=== PATIENT | female | born 1955 | race Two or more races ===

== ENCOUNTER 2018-10-02 18:17 | Emergency (ER) | payer MEDICAID ==
[~2018-10-02] VITALS: Ht 162.6 cm; Wt 72.6 kg
[2018-10-02 18:59] LABS: APPEARANCE,URINE CLEAR; BILIRUBIN, URINE NEGATIVE (NEGATIVE); COLOR,URINE PALE YELLOW; GLUCOSE, URINE (UA) NEGATIVE (NEGATIVE); KETONES,URINE NEGATIVE (NEGATIVE); LEUKOCYTE ESTERASE ,URINE 2+ (NEGATIVE); NITRITE,URINE NEGATIVE (NEGATIVE); PH,URINE 7 (4.5-8.0); PROTEIN,URINE NEGATIVE (NEGATIVE); UROBILINOGEN,URINE NORMAL MG/DL (0.0-1.0)
[2018-10-02 19:10] VITALS: BP 134/65
[2018-10-02 19:22] LABS: BASOPHILS % (AUTO) 1.9 % (0.0-2.0); EOSINOPHILS % (AUTO) 3.9 % (0.0-3.0); HEMATOCRIT 40.2 % (37.0-47.0); HEMOGLOBIN 13.5 G/DL (12.0-16.0); LYMPHOCYTES % (AUTO) 23.5 % (20.0-45.0); MEAN CORPUSCULAR VOLUME 89 FL (80-99); MONOCYTES % (AUTO) 6.9 % (1.0-10.0); NEUTROPHILS % (AUTO) 63.8 % (45.0-75.0); PLATELET COUNT 139 K/UL (150-450); RED BLOOD COUNT 4.54 M/UL (4.20-5.40); RED CELL DISTRIBUTION WIDTH 12.1 % (11.6-14.8); WHITE BLOOD COUNT 6.4 K/UL (4.8-10.8)
--- NOTE | 2018-10-02 19:28 | Emergency Room Report ---
History of Present Illness General Chief Complaint: Upper Respiratory Illness Source: Patient Present Illness HPI Patient is a 63-year-old female sent in by nursing facility for increased cough and congestion. Patient reports having increased difficulty breathing. Patient had prior history of psychiatric disease. Patient denies any increased leg swelling. Patient had recently had a PPD placed which was reportedly positive. Patient was sent in for further evaluation and treatment. Patient denies any severe shortness of breath or chest discomfort at this time. Allergies: Coded Allergies: HALOPERIDOL (Verified Allergy, Unknown, 10/02/18) ZIPRASIDONE (Verified Allergy, Unknown, 10/02/18) Patient History Past Medical History: see triage record Reviewed Nursing Documentation: PMH: Agreed; PSxH: Agreed Nursing Documentation-PMH Past Medical History: No History, Except For Hx Hypertension: Yes Hx Dialysis: Yes History Of Psychiatric Problem: Yes - schizophrenia Review of Systems All Other Systems: negative except mentioned in HPI Physical Exam Vital Signs Date Time Temp Pulse Resp B/P (MAP) Pulse Ox O2 Delivery O2 Flow Rate FiO2 10/02/18 18:03 97.3 73 16 134/65 98 Room Air General Appearance: well appearing, no apparent distress, alert, GCS 15 Head: normocephalic, atraumatic ENT: hearing grossly normal, normal voice Neck: full range of motion, supple Respiratory: no respiratory distress, speaking full sentences Gastrointestinal: normal inspection, non tender, soft Musculoskeletal: no calf tenderness Neurologic: normal inspection, alert, oriented x3, cook vegetable III-XII nml as tested, normal gait Psychiatric: mood/affect normal Skin: no rash Medical Decision Making Diagnostic Impression: Primary Impression: Upper respiratory infection ER Course Patient presented for cough. Differential diagnosis included but was not limited to bronchitis, pneumonia, pulmonary embolism, pericarditis, asthma, foreign body. Because of complexity of patient's case laboratory testing and imaging studies were ordered.The patient's laboratory testing was unremarkable. Patient potassium is likely laboratory error. Patient noted to have the unremarkable chest x-ray. The right upper extremity PPD site was noted to have blistering without evident induration and this is likely due to traumatic placement of PPD..Patient is to be stable for discharge. Labs Test 10/02/18 18:25 White Blood Count 6.4 K/UL (4.8-10.8) Red Blood Count 4.54 M/UL (4.20-5.40) Hemoglobin 13.5 G/DL (12.0-16.0) Hematocrit 40.2 % (37.0-47.0) Mean Corpuscular Volume 89 FL (80-99) Mean Corpuscular Hemoglobin 29.8 PG (27.0-31.0) Mean Corpuscular Hemoglobin Concent 33.7 G/DL (32.0-36.0) Red Cell Distribution Width 12.1 % (11.6-14.8) Platelet Count 139 K/UL (150-450) Mean Platelet Volume 8.2 FL (6.5-10.1) Neutrophils (%) (Auto) 63.8 % (45.0-75.0) Lymphocytes (%) (Auto) 23.5 % (20.0-45.0) Monocytes (%) (Auto) 6.9 % (1.0-10.0) Eosinophils (%) (Auto) 3.9 % (0.0-3.0) Basophils (%) (Auto) 1.9 % (0.0-2.0) Prothrombin Time 10.3 SEC (9.30-11.50) Prothromb Time International Ratio 1.0 (0.9-1.1) Activated Partial Thromboplast Time 23 SEC (23-33) Urine Color Pale yellow Urine Appearance Clear Urine pH 7 (4.5-8.0) Urine Specific [place] 1.005 (1.005-1.035) Urine Protein Negative (NEGATIVE) Urine Glucose (UA) Negative (NEGATIVE) Urine Ketones Negative (NEGATIVE) Urine Blood Negative (NEGATIVE) Urine Nitrite Negative (NEGATIVE) Urine Bilirubin Negative (NEGATIVE) Urine Urobilinogen Normal MG/DL (0.0-1.0) Urine Leukocyte Esterase 2+ (NEGATIVE) Urine RBC 0-2 /HPF (0 - 2) Urine WBC 2-4 /HPF (0 - 2) Urine Squamous Epithelial Cells Few /LPF (NONE/OCC) Urine Bacteria Few /HPF (NONE) Sodium Level 139 MMOL/L (136-145) Potassium Level 5.3 MMOL/L (3.5-5.1) Chloride Level 102 MMOL/L (98-107) Carbon Dioxide Level 30 MMOL/L (21-32) Anion Gap 7 mmol/L (5-15) Blood Urea Nitrogen 28 mg/dL (7-18) Creatinine 1.2 MG/DL (0.55-1.30) Estimat Glomerular Filtration Rate 45.5 mL/min (>60) Glucose Level 125 MG/DL (74-106) Lactic Acid Level 0.80 mmol/L (0.4-2.0) Calcium Level 9.3 MG/DL (8.5-10.1) Phosphorus Level 4.7 MG/DL (2.5-4.9) Magnesium Level 1.8 MG/DL (1.8-2.4) Total Bilirubin 0.2 MG/DL (0.2-1.0) Aspartate Amino Transf (AST/SGOT) 25 U/L (15-37) Alanine Aminotransferase (ALT/SGPT) 19 U/L (12-78) Alkaline Phosphatase 81 U/L (46-116) Total Creatine Kinase 143 U/L (26-308) Creatine Kinase MB 1.3 NG/ML (0.0-3.6) Creatine Kinase MB Relative Index 0.9 Troponin I 0.000 ng/mL (0.000-0.056) Pro-B-Type Natriuretic Peptide 282 pg/mL (0-125) Total Protein 8.4 G/DL (6.4-8.2) Albumin 3.6 G/DL (3.4-5.0) Globulin 4.8 g/dL Albumin/Globulin Ratio 0.8 (1.0-2.7) Last Vital Signs Date Time Temp Pulse Resp B/P (MAP) Pulse Ox O2 Delivery O2 Flow Rate FiO2 10/02/18 19:13 96 16 Room Air 10/02/18 19:10 97.3 134/65 98 Status: improved Disposition: HOME, SELF-CARE Condition: Stable Chaitanya Ramey MD Oct 02, 2018 19:28
[2018-10-02 19:29] LABS: ANION GAP 7 mmol/L (5-15); BLOOD UREA NITROGEN 28 mg/dL (7-18); CALCIUM 9.3 MG/DL (8.5-10.1); CARBON DIOXIDE 30 MMOL/L (21-32); CHLORIDE 102 MMOL/L (98-107); CREATININE 1.2 MG/DL (0.55-1.30); POTASSIUM 5.3 MMOL/L (3.5-5.1); SODIUM 139 MMOL/L (136-145)
--- NOTE | 2018-10-02 19:34 | Diagnostic Imaging Report ---
EXAM: XR Chest, 1 View CLINICAL HISTORY: SOB TECHNIQUE: Frontal view of the chest. COMPARISON: No relevant prior studies available. FINDINGS: Lungs: Unremarkable. No consolidation. Pleural space: Unremarkable. No pneumothorax. Heart: Mild cardiomegaly. Mediastinum: Unremarkable. Bones/joints: Unremarkable. IMPRESSION: Normal chest x-ray.
[2018-10-02 19:44] LABS: ALANINE AMINOTRANSFERASE 19 U/L (12-78); ALBUMIN 3.6 G/DL (3.4-5.0); ALBUMIN/GLOBULIN RATIO 0.8 (1.0-2.7); ALKALINE PHOSPHATASE 81 U/L (46-116); ASPARTATE AMINO TRANSFERASE 25 U/L (15-37); BILIRUBIN,TOTAL 0.2 MG/DL (0.2-1.0); CKMB 1.3 NG/ML (0.0-3.6); CREATINE KINASE 143 U/L (26-308); PHOSPHORUS 4.7 MG/DL (2.5-4.9)
[2018-10-02 21:24] VITALS: BP 134/65
== END 2018-10-02 21:30 ==
LOC: EDBD 18:17 → EMR 18:53 → CANBEDREQ 20:13 → EMR 21:30
DX: J06.9 Acute upper respiratory infection, unspecified (principal); I10 Essential (primary) hypertension; F20.9 Schizophrenia, unspecified
CPT/HCPCS: 36415; 71045; 80053; 81003; 82550; 82553; 83605; 83735; 83880; 84100; 84484; 85025; 85610; 85730; 86710; 87040; 93005; 99284

== ENCOUNTER 2019-01-05 14:20 | Inpatient (IN) | payer MEDICAID ==
[~2019-01-05] VITALS: Ht 154.9 cm; Wt 88.0 kg
[~2019-01-05 14:20] MED LIST: DEPAKOTE250 MG PO; JANUVIA25 MG ORAL; LISINOPRIL2.5 MG ORAL; SERTRALINE HCL25 MG ORAL; SIMVASTATIN20 MG ORAL; STARLIX60 MG ORAL; ZYPREXA10 MG ORAL
--- NOTE | 2019-01-05 14:31 | NUR ---
ED Nurse Note: PT BROUGHT IN BY AMBULANCE FROM [facility]UE TO FALL YESTERDAY. DENIES HEAD TRAUMA OR LOC. PT HAS C/O L LEG AND L FOOT PAIN
[2019-01-05 15:11] LABS: BASOPHILS % (AUTO) 1.1 % (0.0-2.0); HEMATOCRIT 40.8 % (37.0-47.0); HEMOGLOBIN 13.5 G/DL (12.0-16.0); LYMPHOCYTES % (AUTO) 22.7 % (20.0-45.0); MEAN CORPUSCULAR VOLUME 92 FL (80-99); MONOCYTES % (AUTO) 7.4 % (1.0-10.0); NEUTROPHILS % (AUTO) 65.8 % (45.0-75.0); PLATELET COUNT 237 K/UL (150-450); RED BLOOD COUNT 4.44 M/UL (4.20-5.40); RED CELL DISTRIBUTION WIDTH 12.8 % (11.6-14.8); WHITE BLOOD COUNT 6.5 K/UL (4.8-10.8)
[2019-01-05 15:17] LABS: APPEARANCE,URINE CLEAR; BILIRUBIN, URINE NEGATIVE (NEGATIVE); COLOR,URINE PALE YELLOW; GLUCOSE, URINE (UA) 4+ (NEGATIVE); KETONES,URINE 1+ (NEGATIVE); LEUKOCYTE ESTERASE ,URINE NEGATIVE (NEGATIVE); NITRITE,URINE NEGATIVE (NEGATIVE); PH,URINE 7 (4.5-8.0); PROTEIN,URINE NEGATIVE (NEGATIVE); UROBILINOGEN,URINE NORMAL MG/DL (0.0-1.0)
[2019-01-05 15:21] LABS: ANION GAP 7 mmol/L (5-15); BLOOD UREA NITROGEN 27 mg/dL (7-18); CARBON DIOXIDE 29 MMOL/L (21-32); CHLORIDE 98 MMOL/L (98-107); CREATININE 1.3 MG/DL (0.55-1.30); POTASSIUM 5.4 MMOL/L (3.5-5.1); SODIUM 134 MMOL/L (136-145)
[2019-01-05 15:26] LABS: ALANINE AMINOTRANSFERASE 17 U/L (12-78); ALBUMIN 3.3 G/DL (3.4-5.0); ALBUMIN/GLOBULIN RATIO 0.9 (1.0-2.7); ALKALINE PHOSPHATASE 109 U/L (46-116); ASPARTATE AMINO TRANSFERASE 18 U/L (15-37); BILIRUBIN,TOTAL 0.2 MG/DL (0.2-1.0)
--- NOTE | 2019-01-05 15:35 | Diagnostic Imaging Report ---
Indications: Head trauma, status post fall yesterday, pain Technique: Spiral acquisitions obtained through the brain. Angled axial and coronal 5 x 5 mm slices were reconstructed. Total dose length product 1690.02 mGycm. CTDI vol(s) 70.38,11.77 mGy. Dose reduction achieved using automated exposure control Comparison: None. Findings: There is mild age-related enlargement of the ventricles and extra axial CSF spaces. No acute intracranial hemorrhage or edema, mass effect, nor midline shift demonstrated. The calvarium is intact. Visualized orbits and sinuses are unremarkable. The mastoids are clear. Impression: Mild age-related volume loss Negative for acute intracranial bleed or mass effect The CT scanner at [facility] is accredited by the [employer] and the scans are performed using protocols designed to limit radiation exposure to as low as reasonably achievable to attain images of sufficient resolution adequate for diagnostic evaluation.
--- NOTE | 2019-01-05 15:42 | Diagnostic Imaging Report ---
Indication: Pain, trauma, status post fall yesterday Technique: Spiral acquisitions obtained through the cervical spine. No IV contrast utilized. Multiplanar reconstructions were generated. Total dose length product 1690.02 mGycm. CTDIvol(s) 70.38,11.77 mGy. Dose reduction achieved using automated exposure control. Comparison: none Findings: There is slight reversal of the normal cervical lordosis, otherwise normal bony alignment. No acute fractures. No dislocations. The vertebral body heights are preserved. At C5-6, there is minimal degenerative disc narrowing and a small focus of vacuum formation. There is mild narrowing of the right neural foramen, predominantly due to uncinate hypertrophy. At C6-7, there is minimal degenerative disc narrowing. There is minimal narrowing of the bilateral neural foramina. At the remaining levels, no significant disc bulge or protrusion, spinal stenosis, or neural foraminal stenosis. The upper aerodigestive tract is grossly unremarkable. The included extraspinal soft tissues are unremarkable. Impression: No acute bony trauma Minimal degenerative changes, as described The CT scanner at [facility] is accredited by the [employer] and the scans are performed using protocols designed to limit radiation exposure to as low as reasonably achievable to attain images of sufficient resolution adequate for diagnostic evaluation.
[2019-01-05] MEDS ORDERED: Insulin Human Regular 100units/ml 3ml SUBQ ONE (16:15)
--- NOTE | 2019-01-05 16:42 | NUR ---
ED Nurse Note: Placed an IV line on patient's left AC. 20 gauge
[2019-01-05 16:56] VITALS: BP 118/84
[2019-01-05 18:07] LABS: ALANINE AMINOTRANSFERASE 17 U/L (12-78); ALBUMIN/GLOBULIN RATIO 0.9 (1.0-2.7); ALKALINE PHOSPHATASE 107 U/L (46-116); ANION GAP 9 mmol/L (5-15); ASPARTATE AMINO TRANSFERASE 19 U/L (15-37); BILIRUBIN,TOTAL 0.2 MG/DL (0.2-1.0); BLOOD UREA NITROGEN 29 mg/dL (7-18); CALCIUM 8.5 MG/DL (8.5-10.1); CARBON DIOXIDE 28 MMOL/L (21-32); CHLORIDE 100 MMOL/L (98-107); CREATININE 1.4 MG/DL (0.55-1.30); POTASSIUM 5.3 MMOL/L (3.5-5.1); SODIUM 137 MMOL/L (136-145)
[2019-01-05] MEDS ORDERED: NATEGLINIDE120 MG PO (19:11)
[2019-01-05] MEDS ORDERED: JANUVIA50 MG ORAL (19:11)
[2019-01-05] MEDS ORDERED: SERTRALINE HCL50 MG ORAL (19:11)
[2019-01-05] MEDS ORDERED: DIVALPROEX SOD500 MG PO (19:11)
[2019-01-05] MEDS ORDERED: VITAMIN D-32000 UNI1 PO (19:11)
--- NOTE | 2019-01-05 19:30 | NUR ---
ED Nurse Note: Rechecked patients blood sugar was 288, Dr. gasca notified
[2019-01-05 19:41] VITALS: BP 123/82
--- NOTE | 2019-01-05 19:45 | NUR ---
C Addendum: 01/05/19 at 1945 by BPARENTELA ED Nurse Note: attempted to give Report, Erasmo, Charge nurse informed staff, to call back in 10 minutes
--- NOTE | 2019-01-05 19:59 | Emergency Room Report ---
History of Present Illness General Chief Complaint: Multiple Trauma/Fall Source: EMS Present Illness HPI 63-year-old female presents to the emergency department brought by ambulance from [facility] for multiple falls and having altered mental status according to facility. Patient presents with psychiatric history, high blood pressure and diabetes. Patient denies neck or back pain but does admit to falling. Patient states that she does not recall hitting her head or having loss of consciousness. Patient does report some pain in her right second toe stating that she has a corn on the top that requires wound care. Patient denies nausea, vomiting, abdominal pain, fevers, or chills. Patient denies severity localized bony tenderness/pain other than chronic pain in the right foot. pt. reprots needing surgery which is in the process of being scheduled. pt. states she has taken her medications today. Allergies: Coded Allergies: AMPICILLIN (Unverified Allergy, Unknown, 01/05/19) HALOPERIDOL (Verified Allergy, Unknown, 10/02/18) ZIPRASIDONE (Verified Allergy, Unknown, 10/02/18) Patient History Past Medical History: see triage record Past Surgical History: none Pertinent Family History: none Last Menstrual Period: 12/08/18 Now: No Reviewed Nursing Documentation: PMH: Agreed; PSxH: Agreed Nursing Documentation-PMH Past Medical History: No History, Except For Hx Hypertension: Yes Hx Diabetes: Yes Hx Dialysis: Yes History Of Psychiatric Problem: Yes - BIPOLAR, SCHIZO, DEPRESSION Hx Neurological Problems: Yes - SEIZURES Review of Systems All Other Systems: negative except mentioned in HPI Physical Exam Vital Signs Date Time Temp Pulse Resp B/P (MAP) Pulse Ox O2 Delivery O2 Flow Rate FiO2 01/05/19 14:10 98.1 94 18 139/87 95 Room Air Sp02 EP Interpretation: reviewed, normal General Appearance: no apparent distress, alert, GCS 15, non-toxic, obese Head: normocephalic, atraumatic Eyes: bilateral eye normal inspection, bilateral eye PERRL ENT: hearing grossly normal, normal voice Neck: full range of motion Respiratory: lungs clear, normal breath sounds, speaking full sentences Cardiovascular #1: regular rate, rhythm, edema - non-pitting edema bilaterally Gastrointestinal: normal bowel sounds, non tender, soft Musculoskeletal: normal range of motion, other - deformity to digits of the right foot., tender - TTP to the second and thrid digit of the right foot, dorsal aspects- corns noted. Neurologic: alert, oriented x3, responsive, motor strength/tone normal, sensory intact, speech normal, grossly normal Psychiatric: other - very labile - between tearfulness and giddiness. Skin: normal color, no rash, warm/dry, well hydrated, other - corns on the right LE Medical Decision Making PA Attestation Dr. Ramey is my supervising Physician whom patient management has been discussed with. Diagnostic Impression: Primary Impression: Altered mental status Qualified Codes: R41.82 - Altered mental status, unspecified Additional Impression: Hyperglycemia ER Course 63-year-old female presents to the emergency department brought by ambulance from [facility] for multiple falls and having altered mental status according to facility. Patient presents with psychiatric history, high blood pressure and diabetes. Patient denies neck or back pain but does admit to falling. Patient states that she does not recall hitting her head or having loss of consciousness. Patient does report some pain in her right second toe stating that she has a corn on the top that requires wound care. Patient denies nausea, vomiting, abdominal pain, fevers, or chills. Patient denies severity localized bony tenderness/pain other than chronic pain in the right foot. pt. reprots needing surgery which is in the process of being scheduled. pt. states she has taken her medications today. Ddx considered but are not limited to acute head injury, sepsis, encephalopathy , UTI, hyper/hypoglycemia, overdose/intoxication, or arrhythmia just to name a few Vital signs: are WNL, pt. is afebrile H&PE are most consistent with mental status change with unknown baseline status post unwitnessed fall ORDERS: CBC-unremarkable CMP-elevated blood glucose level of 493, potassium of 5.8 and BUN of 27, no anion gap UA: Presence of 4+ glucose and 1+ ketones consistent with hyperglycemia nonketotic ED INTERVENTIONS: 1 L normal saline 2 -10 units subcutaneous normal insulin DISPOSITION: at this time pt. will be admitted to Dr. MORFIN for HYPERGLYCEMIA. Dr. MORFIN agreed to admit the pt. and to continue pt. care management. Labs Test 01/05/19 14:50 01/05/19 17:05 01/05/19 19:35 White Blood Count 6.5 K/UL (4.8-10.8) Red Blood Count 4.44 M/UL (4.20-5.40) Hemoglobin 13.5 G/DL (12.0-16.0) Hematocrit 40.8 % (37.0-47.0) Mean Corpuscular Volume 92 FL (80-99) Mean Corpuscular Hemoglobin 30.5 PG (27.0-31.0) Mean Corpuscular Hemoglobin Concent 33.2 G/DL (32.0-36.0) Red Cell Distribution Width 12.8 % (11.6-14.8) Platelet Count 237 K/UL (150-450) Mean Platelet Volume 7.5 FL (6.5-10.1) Neutrophils (%) (Auto) 65.8 % (45.0-75.0) Lymphocytes (%) (Auto) 22.7 % (20.0-45.0) Monocytes (%) (Auto) 7.4 % (1.0-10.0) Eosinophils (%) (Auto) 3.0 % (0.0-3.0) Basophils (%) (Auto) 1.1 % (0.0-2.0) Urine Color Pale yellow Urine Appearance Clear Urine pH 7 (4.5-8.0) Urine Specific [place] 1.010 (1.005-1.035) Urine Protein Negative (NEGATIVE) Urine Glucose (UA) 4+ (NEGATIVE) Urine Ketones 1+ (NEGATIVE) Urine Blood Negative (NEGATIVE) Urine Nitrite Negative (NEGATIVE) Urine Bilirubin Negative (NEGATIVE) Urine Urobilinogen Normal MG/DL (0.0-1.0) Urine Leukocyte Esterase Negative (NEGATIVE) Sodium Level 137 MMOL/L (136-145) Potassium Level 5.3 MMOL/L (3.5-5.1) Chloride Level 100 MMOL/L (98-107) Carbon Dioxide Level 28 MMOL/L (21-32) Anion Gap 9 mmol/L (5-15) Blood Urea Nitrogen 29 mg/dL (7-18) Creatinine 1.4 MG/DL (0.55-1.30) Estimat Glomerular Filtration Rate 38.1 mL/min (>60) Glucose Level 479 MG/DL (74-106) Calcium Level 8.5 MG/DL (8.5-10.1) Total Bilirubin 0.2 MG/DL (0.2-1.0) Aspartate Amino Transf (AST/SGOT) 19 U/L (15-37) Alanine Aminotransferase (ALT/SGPT) 17 U/L (12-78) Alkaline Phosphatase 107 U/L (46-116) Total Protein 6.4 G/DL (6.4-8.2) Albumin 3.0 G/DL (3.4-5.0) Globulin 3.4 g/dL Albumin/Globulin Ratio 0.9 (1.0-2.7) CT/MRI/US Diagnostic Results CT/MRI/US Diagnostic Results #1: Imaging Test Ordered: CT HEAD NO CONTRAST Impression No acute abnormalities--Per official radiology report- Please see report for specific details. CT/MRI/US Diagnostic Results #2: Imaging Test Ordered: CT C-SPINE Impression No acute FRACTURES/ abnormalities--Per official radiology report- Please see report for specific details. Last Vital Signs Date Time Temp Pulse Resp B/P (MAP) Pulse Ox O2 Delivery O2 Flow Rate FiO2 01/05/19 19:41 97.5 86 18 123/82 95 Room Air Disposition: ADMITTED INPATIENT Condition: Serious Referrals: Yonny Morfin DO (PCP) Simran Dumas Jan 05, 2019 19:59
[2019-01-05 20:00] VITALS: BP 152/63
--- NOTE | 2019-01-05 20:00 | NUR ---
ED Nurse Note: Patient transferred to Med surg, gave report to CORRIE Zimmerman
--- NOTE | 2019-01-05 20:22 | NUR ---
NURSE NOTES: Pt is admitted from ER in stable condition. Report received from ZAFAR Garces RN.Pt is from [facility]. Pt is awake, verbal, ambulatory. Room air. Pt is here after a fall, head and cervical CT was done in the ER. Pt reports no pain now. Pt is is on fall precaution and seizure precaution. Pt has history of diabetes. Pt oriented to the room . Belongings checked. Bed low in position,side rails up and call light within reach. Pt will be monitored. Dr. Mcneil is called for admission orders. Pt's POLST indicates full code status.
[2019-01-05] MEDS ORDERED: LORazepam Inj 2mg/ml 1ml IV PRN (21:00)
[2019-01-05] MEDS ORDERED: Miralax 17gm pkt ORAL PRN (21:00)
[2019-01-05] MEDS ORDERED: Morphine Sulfate 2mg/ml Inj(IV/IM USE ONLY) IVP PRN (21:00)
[2019-01-05] MEDS: Zolpidem 5mg tab ORAL PRN (22:53)
[2019-01-05] MEDS: Heparin 5000 units/ml inj SUBQ SCH (22:55)
[2019-01-05] MEDS: NovoLOG Insulin Flexpen SUBQ SCH (22:55)
[2019-01-05] MEDS: Mylanta II UD 30ml ORAL PRN (23:04)
[2019-01-06] VITALS: BP 134/68
--- NOTE | 2019-01-06 01:46 | NUR ---
NURSE NOTES: Pt is moved to room 402-1 , all belongings transferred as well. No acute distress noted. Vitals stable.
[2019-01-06 04:00] VITALS: BP 132/70
[2019-01-06] MEDS: NovoLOG Insulin Flexpen SUBQ SCH ×4 (05:45→20:32)
--- NOTE | 2019-01-06 07:05 | NUR ---
HAND-OFF: Report given to CORRIE Lara.Informed that pt is fall risk.
[2019-01-06 07:49] LABS: HEMOGLOBIN 11.3 G/DL (12.0-16.0); LYMPHOCYTES % (AUTO) 36.3 % (20.0-45.0); MEAN CORPUSCULAR VOLUME 92 FL (80-99); MONOCYTES % (AUTO) 8.9 % (1.0-10.0); NEUTROPHILS % (AUTO) 49.9 % (45.0-75.0); PLATELET COUNT 216 K/UL (150-450); RED BLOOD COUNT 3.69 M/UL (4.20-5.40); RED CELL DISTRIBUTION WIDTH 12.6 % (11.6-14.8)
[2019-01-06 08:00] VITALS: BP 133/65
[2019-01-06 08:17] LABS: ALANINE AMINOTRANSFERASE 19 U/L (12-78); ALKALINE PHOSPHATASE 69 U/L (46-116); ANION GAP 7 mmol/L (5-15); ASPARTATE AMINO TRANSFERASE 11 U/L (15-37); BILIRUBIN,TOTAL 0.1 MG/DL (0.2-1.0); BLOOD UREA NITROGEN 26 mg/dL (7-18); CALCIUM 8.7 MG/DL (8.5-10.1); CARBON DIOXIDE 28 MMOL/L (21-32); CHLORIDE 106 MMOL/L (98-107); CHOLESTEROL 131 MG/DL (< 200); CREATININE 1.1 MG/DL (0.55-1.30); HDL CHOLESTEROL 38 MG/DL (40-60); POTASSIUM 4.4 MMOL/L (3.5-5.1); SODIUM 141 MMOL/L (136-145); TRIGLYCERIDES 199 MG/DL (30-150)
--- NOTE | 2019-01-06 08:25 | NUR ---
NURSE NOTES: Patient is alert and oriented. Patient assisted to restroom and helped back into bed. Side rails are padded and are up X2. Bed is locked, in lowest position, and call light is within reach. Will continue to monitor.
[2019-01-06] MEDS: OLANZapine 10mg tab ORAL SCH ×2 (08:45→17:43)
[2019-01-06] MEDS: Depakote 500mg tab ORAL SCH (08:45)
[2019-01-06] MEDS: Sertraline 50mg tab ORAL SCH (08:45)
[2019-01-06] MEDS: sitaGLIPtin 50mg tab ORAL SCH (08:45)
[2019-01-06] MEDS: Heparin 5000 units/ml inj SUBQ SCH ×2 (08:46→20:30)
[2019-01-06] MEDS ORDERED: Levemir Flexpen SUBQ SCH (09:00)
--- NOTE | 2019-01-06 10:43 | NUR ---
DAY CAMP COUNSELORMECHANICAL DESIGN TECHNICIAN 63 Y/O FEMALE KANIKA FROM [facility] CC:MULTIPLE TRAUMA/ FALL SI:ALTERED MENTAL STATUS VS: BP 139/87, P 94, T 98.2, RR 18, SpO2 95 on RA K 5.3, BUN 29, CR 1.4, Glucose 479, Albumin 3.0, Urine Ketones 1+ Head CT Impression: Mild age-related volume loss Negative for acute intracranial bleed or mass effect Cervical Spine CT Findings: There is slight reversal of the normal cervical lordosis, otherwise normal bony alignment. No acute fractures. No dislocations. The vertebral body heights are preserved. IS:Morphine Ambien NovoLog Novolin R NS IV x 2L MED/SURGE STATUS DC PLAN RETURN TO [facility]
[2019-01-06 12:00] VITALS: BP 126/67
--- NOTE | 2019-01-06 13:19 | General Progress Note ---
Progress Note Progress Note [id number] full consult dictated Claudia Norman MD Jan 06, 2019 13:19
[2019-01-06 16:00] VITALS: BP 156/90
--- NOTE | 2019-01-06 16:01 | Consultation ---
DATE OF CONSULTATION: 01/06/2019 ENDOCRINOLOGY CONSULTATION: CONSULTING PHYSICIAN: James Quintero M.D. REFERRING PHYSICIAN: Yonny Mcneil D.O. REASON FOR CONSULTATION: Diabetes management. HISTORY OF PRESENT ILLNESS: The patient is a 63-year-old female, who lives in a board and care facility and presented to the hospital with altered mental status. The patient has a psychiatric history, also high blood pressure and diabetes. Glucose is elevated. Endocrinology was consulted in order to assist in the management of diabetes. ALLERGIES TO MEDICATIONS: 1. Ampicillin. 2. Haldol. 3. Ziprasidone. PAST MEDICAL HISTORY: 1. Diabetes. 2. Psychiatric illness. 3. Hypertension. PAST SURGICAL HISTORY: None. FAMILY HISTORY: Noncontributory. SOCIAL HISTORY: Lives in a board and care. No smoking, alcohol, or drug use. REVIEW OF SYSTEMS: As per HPI. LABORATORY DATA: Glucose 137, sodium 135, chloride 100, bicarbonate 28, BUN 29, creatinine 1.4, glucose 479. Lactic acid 2.7. WBC of 6, hemoglobin 12, hematocrit 40, platelets of 337. PHYSICAL EXAMINATION: VITAL SIGNS: Blood pressure 133/70, pulse rate 76, respiratory rate of 18, temp of 98.1. HEENT: Pupils are equal and reactive to light and accommodation. Sclerae anicteric. NECK: No JVD. HEART: Regular. LUNGS: Clear. ABDOMEN: Positive bowel sounds. EXTREMITIES: Trace edema. DIAGNOSES: 1. Diabetes, out of control. 2. Altered mental status. 3. Multiple falls. PLAN: 1. Add Levemir 8 units daily. 2. Start Starlix 120 mg before each meal. 3. Continue Januvia 50 mg daily. 4. Avoid metformin due to elevated lactic acid. 5. NovoLog sliding scale before meals and at bedtime. 6. Further adjustment according to blood glucose values. Thank you, Dr. Mcneil, for the courtesy of this consultation. James Quintero M.D. DR: BELKIS JOB#: [id number] CC: BELA
--- NOTE | 2019-01-06 17:00 | Consultation ---
DATE OF CONSULTATION: 01/06/2019 NEPHROLOGY CONSULTATION CONSULTING PHYSICIAN: Claudia Norman M.D. REFERRING PHYSICIAN: Yonny Mcneil D.O. REASON FOR CONSULTATION: Acute renal failure. HISTORY OF PRESENT ILLNESS: The patient is a 63-year-old female with past medical history significant for history of morbid obesity, hypertension, diabetes, and history of schizophrenia. Apparently the patient was at [facility] and [facility] facility. She was at [employer] [place] and she forgot to lock her walker so the walker moved and she fell on her knee and scraped her left elbow. The patient was brought into emergency room. Per long term records, the patient had altered mental status but currently she is alert and awake. She denies having any chest pain, shortness of breath. She denies having any syncopal or presyncopal episode in the past. PAST MEDICAL HISTORY: 1. Hypertension. 2. Diabetes. 3. Morbid obesity. 4. History of schizophrenia. 5. History of seizure. MEDICATIONS: Medication list was reviewed. ALLERGIES: She has allergies to penicillin, haloperidol, and ziprasidone. SOCIAL HISTORY: She lives at a [facility]. FAMILY HISTORY: Noncontributory. REVIEW OF SYSTEMS: GENERAL: She complained of generalized weakness. No fever. No chills. No night sweats. HEAD AND NECK: Denies any dysphagia, odynophagia, blurry vision, headache, or neck stiffness. PULMONARY: No shortness of breath. No cough or sputum. CARDIOVASCULAR: Denies any chest pain or palpitations. GASTROINTESTINAL: Denies any nausea, vomiting, diarrhea, hematemesis, or hematochezia. GENITOURINARY: Denies any dysuria, frequency, or hematuria. MUSCULOSKELETAL: Complained of bilateral lower extremity toe pain and left knee pain. PHYSICAL EXAMINATION: VITAL SIGNS: The patient has an temperature of 97, blood pressure of 133/65, pulse rate of 76. HEAD AND NECK: No JVP. No LAD. No thyromegaly. Extraocular movement intact. Pupils are reactive to light and accommodation. LUNGS: Clear to auscultation. CARDIAC: Regular rate and rhythm. S1 and S2. No murmur. No rub. ABDOMEN: Soft, nontender, and nondistended. EXTREMITIES: No edema. No clubbing. No cyanosis. LABORATORY AND DIAGNOSTIC DATA: Sodium 141, potassium 4.4, chloride 106, bicarb 28, BUN of 26, creatinine of 1.1, glucose of 204. Creatinine jumped from 1.4. Sugar is 200. A1c of 11.5. AST of 11, ALT of 19, total protein of 6, albumin of 3. UA revealed specific gravity of 1.010, glucose 4+, ketones 1+, no wbc, no rbc, no protein. ASSESSMENT: 1. Acute renal failure. The etiology of acute renal failure is ATN due to unstable hemodynamics . 2. Uncontrolled diabetes. 3. Rule out diabetic nephropathy. 4. Hypertension, well controlled at this time. PLAN: Plan for the patient to obtain UA. Check the random urine protein and creatinine ratio to calculate the proteinuria. Check the urine sodium and creatinine to calculate fractional excretion of sodium. Check microalbumin level. Check the urine for eosinophil, IV hydration. Avoid any NSAID or nephrotoxic. Replace the electrolytes as needed. At the end, I would like to thank, Dr. Yonny Mcneil, for allowing me to participate in the care of this patient. Claudia Norman M.D. DR: Jj JOB#: [id number] CC:
--- NOTE | 2019-01-06 18:16 | History and Physical Report ---
DATE OF ADMISSION: 01/05/2019 CONSULTANTS: 1. Amador Jeroinmo M.D. 2. Donnie Fuentes M.D. 3. James Quintero M.D. 4. Mehdi Obrien 5. Pavel Hutchins M.D. 6. Henry Lobo D.P.M. 7. Claudia Norman M.D. CHIEF COMPLAINT: Diabetes, uncontrolled, fall, seizure, and psych history. BRIEF HISTORY: This is a 63-year-old female from [facility] presents to [facility] with the above-mentioned diagnoses, admitted to medical floor for further treatment. Currently, calm in bed, slightly confused. No complaint. REVIEW OF SYSTEMS: No chest pain. No shortness of breath. No nausea, vomiting, or diarrhea. PAST MEDICAL HISTORY: Includes diabetes, hypertension, psych history, bipolar, frequent falls, and seizure. PAST SURGICAL HISTORY: BTL. MEDICATIONS: Include Starlix, Depakote, Zyprexa, Zoloft, Januvia, Levemir, Tylenol, morphine, Zofran, Ambien, Mylanta, and NovoLog. ALLERGIES: Ampicillin, Haldol, and ziprasidone. SOCIAL HISTORY: Positive smoke. Positive alcohol. No intravenous drug abuse. FAMILY HISTORY: Noncontributory. PHYSICAL EXAMINATION: GENERAL: Calm in bed, oriented x2, in no acute distress. VITAL SIGNS: Temperature 97 degrees, pulse 80, respirations 18, and blood pressure 133/65. CARDIOVASCULAR: No murmurs. LUNGS: Distant and clear. ABDOMEN: Bowel sounds positive. Nontender. Nondistended. EXTREMITIES: No cyanosis. No clubbing. No edema. NEUROLOGIC: Slightly weak in bed. Otherwise, moves all extremities. LABORATORY AND DIAGNOSTIC DATA: Labs, at this time, show H and H is 11 and 34, otherwise CBC is normal. BMP show BUN 26 and glucose 204, initially 479. Albumin 3.0. Urinalysis show 1+ ketone and 4+ glucose. ASSESSMENT: 1. Diabetes, uncontrolled. 2. Frequent falls. 3. Seizure. 4. Anemia. 5. Podiatry issue. 6. Malnutrition. 7. Hypertension. 8. Psych history. 9. Bipolar. 10. BTL. PLAN: 1. Blood sugar and blood pressure control. 2. Psychiatric treatment. 3. Dietary followup. 4. PT and dietary evaluation. 5. CBC and BMP in the morning. Yonny Mcneil D.O. DR: AN JOB#: [id number] CC:
--- NOTE | 2019-01-06 19:07 | NUR ---
HAND-OFF: Report given to CORRIE Nava.
--- NOTE | 2019-01-06 19:12 | NUR ---
NURSE NOTES: Patient reports pain on left arm and left knee. Dr. Fuentes notified. New order received.
[2019-01-06 20:00] VITALS: BP 136/66
[2019-01-06] MEDS: Zolpidem 5mg tab ORAL PRN (20:28)
--- NOTE | 2019-01-06 21:01 | Cardiology Progress Note ---
Assessment/Plan Assessment/Plan The patient is seen and examined, full cardiology consult note is dictated. Objective Last 24 Hour Vital Signs Date Time Temp Pulse Resp B/P (MAP) Pulse Ox O2 Delivery O2 Flow Rate FiO2 01/06/19 16:00 97.2 74 18 156/90 (112) 99 01/06/19 12:00 98.3 79 18 126/67 (86) 100 01/06/19 08:00 Room Air 01/06/19 08:00 97.7 82 18 133/65 (87) 95 01/06/19 04:00 98.1 76 18 132/70 (90) 96 01/06/19 00:00 97.8 78 18 134/68 (90) 96 Intake and Output 01/05/19 01/06/19 18:59 06:59 Intake Total 500 ml Balance 500 ml Intake Oral 500 ml # Voids 1 Laboratory Tests Test 01/06/19 05:33 01/06/19 15:21 White Blood Count 5.0 K/UL (4.8-10.8) Red Blood Count 3.69 M/UL (4.20-5.40) L Hemoglobin 11.3 G/DL (12.0-16.0) L Hematocrit 34.0 % (37.0-47.0) L Mean Corpuscular Volume 92 FL (80-99) Mean Corpuscular Hemoglobin 30.7 PG (27.0-31.0) Mean Corpuscular Hemoglobin Concent 33.3 G/DL (32.0-36.0) Red Cell Distribution Width 12.6 % (11.6-14.8) Platelet Count 216 K/UL (150-450) Mean Platelet Volume 6.8 FL (6.5-10.1) Neutrophils (%) (Auto) 49.9 % (45.0-75.0) Lymphocytes (%) (Auto) 36.3 % (20.0-45.0) Monocytes (%) (Auto) 8.9 % (1.0-10.0) Eosinophils (%) (Auto) 4.0 % (0.0-3.0) H Basophils (%) (Auto) 1.0 % (0.0-2.0) Sodium Level 141 MMOL/L (136-145) Potassium Level 4.4 MMOL/L (3.5-5.1) Chloride Level 106 MMOL/L (98-107) Carbon Dioxide Level 28 MMOL/L (21-32) Anion Gap 7 mmol/L (5-15) Blood Urea Nitrogen 26 mg/dL (7-18) H Creatinine 1.1 MG/DL (0.55-1.30) Estimat Glomerular Filtration Rate 50.3 mL/min (>60) Glucose Level 204 MG/DL (74-106) #H Hemoglobin A1c 11.5 % (4.3-6.0) H Calcium Level 8.7 MG/DL (8.5-10.1) Total Bilirubin 0.1 MG/DL (0.2-1.0) L Aspartate Amino Transf (AST/SGOT) 11 U/L (15-37) L Alanine Aminotransferase (ALT/SGPT) 19 U/L (12-78) Alkaline Phosphatase 69 U/L (46-116) Total Protein 6.0 G/DL (6.4-8.2) L Albumin 3.0 G/DL (3.4-5.0) L Globulin 3.0 g/dL Albumin/Globulin Ratio 1.0 (1.0-2.7) Triglycerides Level 199 MG/DL (30-150) H Cholesterol Level 131 MG/DL (< 200) LDL Cholesterol 62 mg/dL (<100) HDL Cholesterol 38 MG/DL (40-60) L Cholesterol/HDL Ratio 3.4 (3.3-4.4) Urine Eosinophils None seen (NONE SEEN) Urine Random Creatinine Pending Urine Random Microalbumin Pending Urine Random Total Protein 2 MG/DL (< 11.9) Urine Random Sodium 49 mmol/L (20-110) Urine Creatinine 9.2 MG/DL (30.0-125.0) L Urine Microalbumin/Creatinine Ratio Pending Microbiology Date/Time Source Procedure Growth Status 01/05/19 15:05 Rectum Received Pavel Hutchins MD Jan 06, 2019 21:01
--- NOTE | 2019-01-06 22:42 | NUR ---
NURSE NOTES: Patient awake in bed, alert and oriented x4, not in acute respiratory distress. Instructed the use of call light. Call light and needs in reach. Bed in lowest position, lock engaged and alarm on. Will continue to monitor.
[2019-01-07] VITALS: BP 132/81
[2019-01-07 04:00] VITALS: BP 143/91
[2019-01-07] MEDS: NovoLOG Insulin Flexpen SUBQ SCH ×4 (05:51→20:10)
--- NOTE | 2019-01-07 06:35 | General Progress Note ---
Assessment/Plan Problem List: (1) Altered mental status ICD Codes: R41.82 - Altered mental status, unspecified SNOMED: 387819404 Qualifiers: Qualified Codes: R41.82 - Altered mental status, unspecified (2) Hyperglycemia ICD Codes: R73.9 - Hyperglycemia, unspecified SNOMED: 10396243 Assessment/Plan increased Levemir to 14 units daily continue Starlix 120 mg ac tid continue Januvia 50 mg daily continue NISS ac / hs Subjective ROS Limited/Unobtainable: Yes Allergies: Coded Allergies: AMPICILLIN (Unverified Allergy, Unknown, 01/05/19) HALOPERIDOL (Verified Allergy, Unknown, 10/02/18) ZIPRASIDONE (Verified Allergy, Unknown, 10/02/18) Subjective events noted Item Value Date Time Bedside Blood Glucose 210 mg/dl H 01/07/19 0551 Bedside Blood Glucose 233 mg/dl H 01/06/19 2100 Bedside Blood Glucose 126 mg/dl H 01/06/19 1731 Bedside Blood Glucose 203 mg/dl H 01/06/19 1234 Bedside Blood Glucose 208 mg/dl H 01/06/19 0847 Bedside Blood Glucose 208 mg/dl H 01/06/19 0630 Objective Last 24 Hour Vital Signs Date Time Temp Pulse Resp B/P (MAP) Pulse Ox O2 Delivery O2 Flow Rate FiO2 01/07/19 04:00 97.7 74 18 143/91 (108) 99 01/07/19 00:00 97.5 64 20 132/81 (98) 94 01/06/19 21:00 Room Air 01/06/19 20:00 97.6 71 18 136/66 (89) 95 01/06/19 16:00 97.2 74 18 156/90 (112) 99 01/06/19 12:00 98.3 79 18 126/67 (86) 100 01/06/19 08:00 Room Air 01/06/19 08:00 97.7 82 18 133/65 (87) 95 Intake and Output 01/06/19 01/07/19 19:00 07:00 Intake Total 800 ml Balance 800 ml Intake Oral 800 ml # Voids 7 4 # Bowel Movements 1 Laboratory Tests 01/06/19 15:21: Urine Eosinophils None seen, Urine Random Creatinine [Pending], Urine Random Microalbumin [Pending], Urine Random Total Protein 2, Urine Random Sodium 49, Urine Creatinine 9.2L, Urine Microalbumin/Creatinine Ratio [Pending] Height (Feet): 5 Height (Inches): 1.00 Weight (Pounds): 194 General Appearance: no apparent distress Neck: normal alignment Cardiovascular: normal rate Respiratory/Chest: lungs clear Abdomen: normal bowel sounds Objective Current Medications Medications (Trade) Dose Ordered Sig/Soham Route PRN Reason Start Time Stop Time Status Last Admin Dose Admin Acetaminophen (Tylenol) 650 mg Q4H PRN ORAL Mild Pain/Temp > 100.5 01/06/19 17:00 02/04/19 20:59 01/06/19 20:29 Al Hydroxide/Mg Hydroxide (Mylanta II) 30 ml Q6H PRN ORAL dyspepsia 01/05/19 21:00 02/04/19 20:59 01/05/19 23:04 Dextrose (Dextrose 50%) 25 ml Q30M PRN IV Hypoglycemia 01/06/19 06:45 02/05/19 06:44 Dextrose (Dextrose 50%) 50 ml Q30M PRN IV Hypoglycemia 01/06/19 06:45 02/05/19 06:44 Divalproex Sodium (Depakote) 500 mg DAILY ORAL 01/06/19 09:00 02/05/19 08:59 01/06/19 08:45 Docusate Sodium (Colace) 100 mg THREE TIMES A DAY ORAL 01/07/19 09:00 02/06/19 08:59 Heparin Sodium (Porcine) (Heparin 5000 units/ml) 5,000 units EVERY 12 HOURS SUBQ 01/05/19 21:00 02/04/19 20:59 01/06/19 20:30 Insulin Aspart (NovoLOG) BEFORE MEALS AND HS SUBQ 01/05/19 21:00 02/04/19 20:59 01/07/19 05:51 Insulin Detemir (Levemir) 8 units DAILY SUBQ 01/06/19 09:00 02/05/19 08:59 01/06/19 08:47 Lorazepam (Ativan 2mg/ml 1ml) 0.5 mg Q4H PRN IV For Anxiety 01/05/19 21:00 01/12/19 20:59 Morphine Sulfate (Morphine Sulfate) 1 mg Q4H PRN IVP For Pain 01/05/19 21:00 01/12/19 20:59 01/05/19 22:53 Nateglinide (Starlix) 120 mg TIAC ORAL 01/06/19 11:30 02/05/19 11:29 01/07/19 05:45 Olanzapine (ZyPREXA) 10 mg TWICE A DAY ORAL 01/06/19 09:00 02/05/19 08:59 01/06/19 17:43 Ondansetron HCl (Zofran) 4 mg Q6H PRN IVP Nausea & Vomiting 01/05/19 21:00 02/04/19 20:59 Polyethylene Glycol (Miralax) 17 gm HSPRN PRN ORAL Constipation 01/05/19 21:00 02/04/19 20:59 Sertraline HCl (Zoloft) 50 mg DAILY ORAL 01/06/19 09:00 02/05/19 08:59 01/06/19 08:45 Sitagliptin Phosphate (Januvia) 50 mg DAILY ORAL 01/06/19 09:00 02/05/19 08:59 01/06/19 08:45 Zolpidem Tartrate (Ambien) 5 mg HSPRN PRN ORAL Insomnia 01/05/19 21:00 01/12/19 20:59 01/06/19 20:28 James Quintero MD Jan 07, 2019 06:35
[2019-01-07 06:41] LABS: BASOPHILS % (AUTO) 1.2 % (0.0-2.0); EOSINOPHILS % (AUTO) 4.6 % (0.0-3.0); HEMATOCRIT 34.4 % (37.0-47.0); HEMOGLOBIN 11.6 G/DL (12.0-16.0); MEAN CORPUSCULAR VOLUME 91 FL (80-99); MONOCYTES % (AUTO) 6.8 % (1.0-10.0); NEUTROPHILS % (AUTO) 54.5 % (45.0-75.0); PLATELET COUNT 198 K/UL (150-450); RED BLOOD COUNT 3.79 M/UL (4.20-5.40); RED CELL DISTRIBUTION WIDTH 12.1 % (11.6-14.8); WHITE BLOOD COUNT 5.5 K/UL (4.8-10.8)
[2019-01-07 06:52] LABS: ANION GAP 10 mmol/L (5-15); BLOOD UREA NITROGEN 29 mg/dL (7-18); CALCIUM 9.1 MG/DL (8.5-10.1); CARBON DIOXIDE 26 MMOL/L (21-32); CHLORIDE 103 MMOL/L (98-107); CREATININE 1.2 MG/DL (0.55-1.30); POTASSIUM 4.8 MMOL/L (3.5-5.1); SODIUM 139 MMOL/L (136-145)
--- NOTE | 2019-01-07 07:19 | NUR ---
HAND-OFF: Report given to CORRIE Lara.
[2019-01-07 08:00] VITALS: BP 141/62
--- NOTE | 2019-01-07 08:18 | NUR ---
NURSE NOTES: Patient is alert and oriented X4. Patient is resting in bed. No reports of discomfort. Will continue to monitor.
[2019-01-07] MEDS: Docusate 100mg cap ORAL SCH ×3 (08:56→17:34)
[2019-01-07] MEDS: OLANZapine 10mg tab ORAL SCH ×2 (08:56→17:35)
[2019-01-07] MEDS: sitaGLIPtin 50mg tab ORAL SCH (08:56)
[2019-01-07] MEDS: Sertraline 50mg tab ORAL SCH (08:56)
[2019-01-07] MEDS: Depakote 500mg tab ORAL SCH (08:57)
[2019-01-07] MEDS: Heparin 5000 units/ml inj SUBQ SCH ×2 (08:58→20:08)
[2019-01-07] MEDS ORDERED: Levemir Flexpen SUBQ SCH (09:00)
--- NOTE | 2019-01-07 10:31 | NUR ---
RADIOLOGY DEPT ELBOW AND KNEE X-RAYS COMPLETED.-P.DYE
--- NOTE | 2019-01-07 10:42 | Diagnostic Imaging Report ---
Indications:Elbow pain Technique: 2 views of the left elbow Comparison: None Findings: No acute fractures. No dislocations. The joint spaces are preserved. No evidence of effusion Impression: Negative
--- NOTE | 2019-01-07 10:43 | Diagnostic Imaging Report ---
Indication: Left knee pain Technique: 2 views of the left knee Comparison: None Findings: There is mild degenerative narrowing of the medial joint compartment. There may be some narrowing of the patellofemoral compartment. Lateral compartment is preserved. There are medial, lateral, and patellofemoral osteophytes noted. No effusion. No acute fractures. No dislocations. Impression: Degenerative changes, as described No acute bony trauma
--- NOTE | 2019-01-07 11:47 | NUR ---
*-* INSURANCE *-* ALL CLINICALS, REVIEWS AND INTERQUAL HAVE BEEN FAXED TO: GREG PLEASE FAX THE REVIEW/CLINICAL NCM: TAQUERIA P- [phone] X [phone] F- [phone]
[2019-01-07 12:00] VITALS: BP 134/81
[2019-01-07] MEDS ORDERED: NOVOLOG100 UNITS1 SUBQ (13:02)
[2019-01-07] MEDS ORDERED: LEVEMIR FL100 UNIT/1 SUBQ (13:02)
--- NOTE | 2019-01-07 13:02 | Pulmonology Progress Note ---
Assessment/Plan Problems: (1) Uncontrolled diabetes mellitus (2) Altered mental status Assessment/Plan BS better now on Levemir 14 Subjective ROS Limited/Unobtainable: No Constitutional: Reports: no symptoms HEENT: Repors: no symptoms Respiratory: Reports: no symptoms Allergies: Coded Allergies: AMPICILLIN (Unverified Allergy, Unknown, 01/05/19) HALOPERIDOL (Verified Allergy, Unknown, 10/02/18) ZIPRASIDONE (Verified Allergy, Unknown, 10/02/18) Objective Last 24 Hour Vital Signs Date Time Temp Pulse Resp B/P (MAP) Pulse Ox O2 Delivery O2 Flow Rate FiO2 01/07/19 12:00 97.6 18 18 134/81 (98) 97 75 01/07/19 08:15 Room Air 01/07/19 08:00 97.5 80 18 141/62 (88) 97 01/07/19 04:00 97.7 74 18 143/91 (108) 99 01/07/19 00:00 97.5 64 20 132/81 (98) 94 01/06/19 21:00 Room Air 01/06/19 20:00 97.6 71 18 136/66 (89) 95 01/06/19 16:00 97.2 74 18 156/90 (112) 99 Intake and Output 01/06/19 01/07/19 19:00 07:00 Intake Total 800 ml Balance 800 ml Intake Oral 800 ml # Voids 7 4 # Bowel Movements 1 General Appearance: WD/WN HEENT: normocephalic, atraumatic Respiratory/Chest: chest wall non-tender, normal breath sounds Breasts: no masses Cardiovascular: regular rhythm Abdomen: soft, non tender, non distended Extremities: no clubbing Microbiology Date/Time Source Procedure Growth Status 01/05/19 16:45 Blood Blood Culture - Preliminary NO GROWTH AFTER 24 HOURS Resulted 01/05/19 16:30 Blood Blood Culture - Preliminary NO GROWTH AFTER 24 HOURS Resulted 01/05/19 15:05 Rectum Received Laboratory Tests 01/06/19 15:21: Urine Eosinophils None seen, Urine Random Creatinine [Pending], Urine Random Microalbumin [Pending], Urine Random Total Protein 2, Urine Random Sodium 49, Urine Creatinine 9.2L, Urine Microalbumin/Creatinine Ratio [Pending] 01/07/19 05:16: White Blood Count 5.5, Red Blood Count 3.79L, Hemoglobin 11.6L, Hematocrit 34.4L , Mean Corpuscular Volume 91, Mean Corpuscular Hemoglobin 30.6, Mean Corpuscular Hemoglobin Concent 33.7, Red Cell Distribution Width 12.1, Platelet Count 198, Mean Platelet Volume 6.0L, Neutrophils (%) (Auto) 54.5, Lymphocytes ( %) (Auto) 33.0, Monocytes (%) (Auto) 6.8, Eosinophils (%) (Auto) 4.6H, Basophils (%) (Auto) 1.2, Sodium Level 139, Potassium Level 4.8, Chloride Level 103, Carbon Dioxide Level 26, Anion Gap 10, Blood Urea Nitrogen 29H, Creatinine 1.2, Estimat Glomerular Filtration Rate 45.5, Glucose Level 209H, Calcium Level 9.1 Current Medications Medications (Trade) Dose Ordered Sig/Soham Route PRN Reason Start Time Stop Time Status Last Admin Dose Admin Acetaminophen (Tylenol) 650 mg Q4H PRN ORAL Mild Pain/Temp > 100.5 01/06/19 17:00 02/04/19 20:59 01/06/19 20:29 Al Hydroxide/Mg Hydroxide (Mylanta II) 30 ml Q6H PRN ORAL dyspepsia 01/05/19 21:00 02/04/19 20:59 01/05/19 23:04 Dextrose (Dextrose 50%) 25 ml Q30M PRN IV Hypoglycemia 01/06/19 06:45 02/05/19 06:44 Dextrose (Dextrose 50%) 50 ml Q30M PRN IV Hypoglycemia 01/06/19 06:45 02/05/19 06:44 Divalproex Sodium (Depakote) 500 mg DAILY ORAL 01/06/19 09:00 02/05/19 08:59 01/07/19 08:57 Docusate Sodium (Colace) 100 mg THREE TIMES A DAY ORAL 01/07/19 09:00 02/06/19 08:59 01/07/19 08:56 Heparin Sodium (Porcine) (Heparin 5000 units/ml) 5,000 units EVERY 12 HOURS SUBQ 01/05/19 21:00 02/04/19 20:59 01/07/19 08:58 Insulin Aspart (NovoLOG) BEFORE MEALS AND HS SUBQ 01/05/19 21:00 02/04/19 20:59 01/07/19 05:51 Insulin Detemir (Levemir) 14 units DAILY SUBQ 01/07/19 09:00 02/05/19 08:59 01/07/19 09:14 Lorazepam (Ativan 2mg/ml 1ml) 0.5 mg Q4H PRN IV For Anxiety 01/05/19 21:00 01/12/19 20:59 Morphine Sulfate (Morphine Sulfate) 1 mg Q4H PRN IVP For Pain 01/05/19 21:00 01/12/19 20:59 01/05/19 22:53 Nateglinide (Starlix) 120 mg TIAC ORAL 01/06/19 11:30 02/05/19 11:29 01/07/19 05:45 Olanzapine (ZyPREXA) 10 mg TWICE A DAY ORAL 01/06/19 09:00 02/05/19 08:59 01/07/19 08:56 Ondansetron HCl (Zofran) 4 mg Q6H PRN IVP Nausea & Vomiting 01/05/19 21:00 02/04/19 20:59 Polyethylene Glycol (Miralax) 17 gm HSPRN PRN ORAL Constipation 01/05/19 21:00 02/04/19 20:59 Sertraline HCl (Zoloft) 50 mg DAILY ORAL 01/06/19 09:00 02/05/19 08:59 01/07/19 08:56 Sitagliptin Phosphate (Januvia) 50 mg DAILY ORAL 01/06/19 09:00 02/05/19 08:59 01/07/19 08:56 Zolpidem Tartrate (Ambien) 5 mg HSPRN PRN ORAL Insomnia 01/05/19 21:00 01/12/19 20:59 01/06/19 20:28 Donnie Fuentes MD Jan 07, 2019 13:02
--- NOTE | 2019-01-07 13:19 | General Progress Note ---
Assessment/Plan Problem List: (1) Anemia ICD Codes: D64.9 - Anemia, unspecified SNOMED: 523985472 (2) Malnutrition ICD Codes: E46 - Unspecified protein-calorie malnutrition SNOMED: 88079329 (3) Altered mental status ICD Codes: R41.82 - Altered mental status, unspecified SNOMED: 140702646 Qualifiers: Qualified Codes: R41.82 - Altered mental status, unspecified (4) Hyperglycemia ICD Codes: R73.9 - Hyperglycemia, unspecified SNOMED: 53584111 (5) Uncontrolled diabetes mellitus ICD Codes: E11.65 - Type 2 diabetes mellitus with hyperglycemia SNOMED: 94809447, 249404085 Status: stable, progressing Assessment/Plan pt diet bs control cbc bmp am dc if clear Subjective Constitutional: Reports: weakness Allergies: Coded Allergies: AMPICILLIN (Unverified Allergy, Unknown, 01/05/19) HALOPERIDOL (Verified Allergy, Unknown, 10/02/18) ZIPRASIDONE (Verified Allergy, Unknown, 10/02/18) All Systems: reviewed and negative except above Subjective calm in bed Objective Last 24 Hour Vital Signs Date Time Temp Pulse Resp B/P (MAP) Pulse Ox O2 Delivery O2 Flow Rate FiO2 01/07/19 12:00 97.6 18 18 134/81 (98) 97 75 01/07/19 08:15 Room Air 01/07/19 08:00 97.5 80 18 141/62 (88) 97 01/07/19 04:00 97.7 74 18 143/91 (108) 99 01/07/19 00:00 97.5 64 20 132/81 (98) 94 01/06/19 21:00 Room Air 01/06/19 20:00 97.6 71 18 136/66 (89) 95 01/06/19 16:00 97.2 74 18 156/90 (112) 99 Intake and Output 01/06/19 01/07/19 19:00 07:00 Intake Total 800 ml Balance 800 ml Intake Oral 800 ml # Voids 7 4 # Bowel Movements 1 Laboratory Tests 01/06/19 15:21: Urine Eosinophils None seen, Urine Random Creatinine [Pending], Urine Random Microalbumin [Pending], Urine Random Total Protein 2, Urine Random Sodium 49, Urine Creatinine 9.2L, Urine Microalbumin/Creatinine Ratio [Pending] 01/07/19 05:16: White Blood Count 5.5, Red Blood Count 3.79L, Hemoglobin 11.6L, Hematocrit 34.4L , Mean Corpuscular Volume 91, Mean Corpuscular Hemoglobin 30.6, Mean Corpuscular Hemoglobin Concent 33.7, Red Cell Distribution Width 12.1, Platelet Count 198, Mean Platelet Volume 6.0L, Neutrophils (%) (Auto) 54.5, Lymphocytes ( %) (Auto) 33.0, Monocytes (%) (Auto) 6.8, Eosinophils (%) (Auto) 4.6H, Basophils (%) (Auto) 1.2, Sodium Level 139, Potassium Level 4.8, Chloride Level 103, Carbon Dioxide Level 26, Anion Gap 10, Blood Urea Nitrogen 29H, Creatinine 1.2, Estimat Glomerular Filtration Rate 45.5, Glucose Level 209H, Calcium Level 9.1 Height (Feet): 5 Height (Inches): 1.00 Weight (Pounds): 194 General Appearance: alert EENT: normal ENT inspection Neck: normal alignment Cardiovascular: normal peripheral pulses, normal rate, regular rhythm Respiratory/Chest: chest wall non-tender, lungs clear, normal breath sounds Abdomen: normal bowel sounds, non tender, soft Extremities: normal inspection Edema: no edema noted Arm (L), no edema noted Arm (R), no edema noted Leg (L), no edema noted Leg (R), no edema noted Pedal (L), no edema noted Pedal (R), no edema noted Generalized Neurologic: responsive, motor weakness Skin: normal pigmentation, warm/dry Yonny Mcneil DO Jan 07, 2019 13:19
--- NOTE | 2019-01-07 13:25 | NUR ---
INSPECTOR PROCESSHOTEL REGISTRATION CLERK SI:ALTERED MENTAL STATUS VS:BP 143/91, P 75, T 97.5, RR 18, SpO2 97 RBC 3.79, Hgb 11.6, Hct 34.4, BUN 29, Glucose 209, Knee XRAY Impression: Degenerative changes, as described No acute bony trauma Elbow XRAY Findings: No acute fractures. No dislocations. The joint spaces are preserved. No evidence of effusion IS:COLACE LEVEMIR SUBQ STARLIX DEPAKOTE ZYPREXA ZOLOFT JANUVIA HEPARIN SUBQ MED/SURG STATUS
--- NOTE | 2019-01-07 14:51 | NUR ---
P.T NOTE: P.T EVALUATION COMPLETED. PATIENT IS CURRENTLY AT BASELINE LEVEL OF FUNCTION.INDEPENDENT WITH ADL/FUNCTIONAL MOBILITIES AND GAIT/LOCOMOTION. CURRENT FUNCTIONAL STATUS DOES NOT WARRANTED SKILLED P.T SERVICE AT THIS TIME. [facility]. THANK YOU FOR THIS REFERRAL. Addendum: 01/07/19 at 1452 by АНДРЕЙ FRAZIER PT Amended: Links added.
[2019-01-07 16:00] VITALS: BP 136/81
--- NOTE | 2019-01-07 18:26 | Podiatric Progress Note ---
Assessment/Plan Patient Alie Miranda is a 63 year old female who was admitted on Jan 05, 2019 at 18:00 with Assessment/Plan A/ 1) Hammertoe right 2nd toe 2) Bunions Bilateral feet 3) Uncontrolled DM P/ 1) Cont padding and offloading 2) Discussed DM foot care 3) Patient wishes to have surgery with her Copy Chief Dr Neri and will follow up with him as an outpatient. Advised against elective surgery 2/2 uncontrolled diabetes 4) F/U with outpatient Copy Chief Thank you Dr Mcneil Subjective Allergies: Coded Allergies: AMPICILLIN (Unverified Allergy, Unknown, 01/05/19) HALOPERIDOL (Verified Allergy, Unknown, 10/02/18) ZIPRASIDONE (Verified Allergy, Unknown, 10/02/18) Subjective Patient complains of pain in bilateral feet and she missed her appt with her regular Copy Chief, Dr Neri. She states nurse placed gauze and toes on right foot and it feels better now Objective Exam Last 24 Hour Vital Signs Date Time Temp Pulse Resp B/P (MAP) Pulse Ox O2 Delivery O2 Flow Rate FiO2 01/07/19 16:00 97.5 81 18 136/81 (99) 98 81 01/07/19 12:00 97.6 18 18 134/81 (98) 97 75 01/07/19 08:15 Room Air 01/07/19 08:00 97.5 80 18 141/62 (88) 97 01/07/19 04:00 97.7 74 18 143/91 (108) 99 01/07/19 00:00 97.5 64 20 132/81 (98) 94 01/06/19 21:00 Room Air 01/06/19 20:00 97.6 71 18 136/66 (89) 95 Laboratory Tests Test 01/07/19 05:16 White Blood Count 5.5 K/UL (4.8-10.8) Red Blood Count 3.79 M/UL (4.20-5.40) L Hemoglobin 11.6 G/DL (12.0-16.0) L Hematocrit 34.4 % (37.0-47.0) L Mean Corpuscular Volume 91 FL (80-99) Mean Corpuscular Hemoglobin 30.6 PG (27.0-31.0) Mean Corpuscular Hemoglobin Concent 33.7 G/DL (32.0-36.0) Red Cell Distribution Width 12.1 % (11.6-14.8) Platelet Count 198 K/UL (150-450) Mean Platelet Volume 6.0 FL (6.5-10.1) L Neutrophils (%) (Auto) 54.5 % (45.0-75.0) Lymphocytes (%) (Auto) 33.0 % (20.0-45.0) Monocytes (%) (Auto) 6.8 % (1.0-10.0) Eosinophils (%) (Auto) 4.6 % (0.0-3.0) H Basophils (%) (Auto) 1.2 % (0.0-2.0) Sodium Level 139 MMOL/L (136-145) Potassium Level 4.8 MMOL/L (3.5-5.1) Chloride Level 103 MMOL/L (98-107) Carbon Dioxide Level 26 MMOL/L (21-32) Anion Gap 10 mmol/L (5-15) Blood Urea Nitrogen 29 mg/dL (7-18) H Creatinine 1.2 MG/DL (0.55-1.30) Estimat Glomerular Filtration Rate 45.5 mL/min (>60) Glucose Level 209 MG/DL (74-106) H Calcium Level 9.1 MG/DL (8.5-10.1) Microbiology Date/Time Source Procedure Growth Status 01/05/19 16:45 Blood Blood Culture - Preliminary NO GROWTH AFTER 24 HOURS Resulted 01/05/19 15:05 Rectum Received General Appearance: WD/WN Musculoskeletal Muscle strength grading: grade 5 - muscle strength of BLE Musculoskeletal: abnormal bony prominence - noted at bilateral 1st MPJ and right 2nd PIPJ Vascular Pulses: 2 dorsalis pedis (R), 2 dorsalis pedis (L), 2 posterior tibial (R), 2 posterior tibial (L), 2 popliteal (R), 2 popliteal (L) Edema: 1+ (<2mm) foot (L), 1+ (<2mm) foot (R), 1+ (<2mm) ankle (L), 1+ (<2mm) ankle (R), 1+ (<2mm) leg (L), 1+ (<2mm) leg (R) Pedal hair present: No Temperature: within normal limits Neurological Light touch: sensate bilateral Dermatological Dermatological: within nl limits Henry Lobo DPM Jan 07, 2019 18:26
--- NOTE | 2019-01-07 19:27 | NUR ---
NURSE NOTES: Patient to be discharged to [facility]. Report given to Zaida at facility.
--- NOTE | 2019-01-07 19:27 | NUR ---
HAND-OFF: Report given to CORRIE Hutchinson.
[2019-01-07] MEDS: Mylanta II UD 30ml ORAL PRN (20:04)
--- NOTE | 2019-01-08 05:31 | Consultation ---
DATE OF CONSULTATION: 01/07/2019 CARDIOLOGY CONSULTATION CONSULTING PHYSICIAN: Pavel Hutchins M.D. REFERRING PHYSICIAN: Yonny Mcneil D.O. REASON FOR CONSULTATION: Management of accelerated hypertension. HISTORY OF PRESENT ILLNESS: The patient is a very unfortunate 63-year-old female, who presents to emergency department from [facility] after she started to sustain multiple falls and having altered mental status according to the staff at the facility. The patient's cardiovascular history is significant for hypertension, diabetes mellitus, and history of end-stage renal disease. At the time of arrival to the hospital, the patient did not have any chest pain or shortness of breath. A 12-lead electrocardiogram was unremarkable. The patient was admitted to Med/Surg unit for further evaluation and management. Cardiology consultation was made at request of Dr. Mcneil for evaluation and management of hemodynamics in the patient with severe hypoglycemia, contraction alkalosis and accelerated hypertension. PAST MEDICAL HISTORY: 1. History of diabetes mellitus. 2. History of hypertension. 3. History of psychiatric disorder. 4. History of depression. 5. History of bipolar disorder. 6. History of seizures. 7. History of end-stage renal disease, on hemodialysis. PAST SURGICAL HISTORY: None. ALLERGIES: Ampicillin, haloperidol, and ziprasidone. REVIEW OF SYSTEMS: HEENT: Denies any headache, diplopia, or blurred vision. CONSTITUTIONAL: Denies any generalized weakness, fever, chills, or night sweats. Positive for falls. CVS: Denies any chest pain, shortness of breath, PND, orthopnea, or leg swelling. PULMONARY: Denies any cough, hemoptysis, or wheezing. GASTROINTESTINAL: Denies any nausea, vomiting, diarrhea, constipation, abdominal pain, or GI bleed. GENITOURINARY: Denies any hematuria, dysuria, or incontinence. NEUROLOGY: Denies any motor dysfunction, sensory deficits, or altered speech. Denies any head trauma. MUSCULOSKELETAL: She has got pain and tenderness in the right foot. MEDICATIONS: List of medications from [facility] includes, 1. Vitamin D3 2000 units p.o. daily. 2. Divalproex sodium 500 mg p.o. 2 tablets in the morning and 1 tablet at nighttime. 3. Insulin NovoLog. 4. Insulin Detemir 14 units subcu daily. 5. Lisinopril 25 mg p.o. daily. 6. Mitiglinide 120 mg p.o. daily before meals. 7. Zyprexa 10 mg p.o. twice daily. 8. Zoloft 50 mg p.o. daily. 9. Zocor 20 mg p.o. nightly. 10. Januvia 50 mg p.o. daily. PHYSICAL EXAMINATION: VITAL SIGNS: Blood pressure at time of arrival to the hospital 139/87, pulse of 94, respirations of 18, temperature 98.1 degrees Fahrenheit, and O2 saturation 95% on room air. GENERAL: The patient is a very unfortunate 63-year-old female, who visited in no apparent respiratory distress, alert and oriented x4. HEENT: Atraumatic and normocephalic. ENT, pupils are equal, round, and reactive to light and accommodation. Extraocular muscles intact. NECK: JVP is less than 5 cm. No carotid bruit. Carotid upstroke is 2+ bilaterally. CVS: Normal S1 and S2. Regular rate and rhythm. No murmurs, gallops, or rubs. PMI is at fourth intercostal space in the midclavicular line. LUNGS: Clear to auscultation bilaterally. ABDOMEN: Soft, nontender, and nondistended. No hepatosplenomegaly. Positive bowel sounds. EXTREMITIES: No evidence of edema, clubbing, or cyanosis. LABORATORY FINDINGS AND IMAGING DATA: WBC count is 6.5, hemoglobin 18.5, hematocrit of 48.8%, and platelet count is 237,000. UA shows 4+ glucosuria and 1+ ketonuria. CBC shows sodium 137, potassium was 5.3, chloride 100, bicarbonate 28, BUN of 29, creatinine is 1.4, glucose is 479 and calcium is 8.5. CT of head showed mild age related volume loss. ASSESSMENT AND PLAN: 1. History of accelerated hypertension. We will consider amlodipine. 2. The patient will benefit from 2D echocardiography, for assessment of left ventricular systolic and diastolic function. 3. History of diabetes mellitus. 4. History of hypertension. Thank you very much for allowing me to participate in care of this patient. Pavel Hutchins M.D. DR: JUVE JOB#: [id number] CC:
--- NOTE | 2019-01-10 09:15 | Discharge Summary ---
Discharge Summary Discharge Summary _ DATE OF ADMISSION: 01/05/2019 DATE OF DISCHARGE: 01/07/2019 DISCHARGED BY: Dr Mcneil REASON FOR ADMISSION: 63 years old female with past medical history of hypertension, diabetes, renal insufficiency, seizure disorder, bipolar disorder, depression, schizophrenia , presented to emergency room from board and care for multiply falls and altered mental status. Patient denied neck or back pain, but admitted to falling. She denied hitting her head or having loss of consciousness. Patient reported pain in right second toe . She denied nausea .vomiting .fever .chills .abdominal pain Upon evaluation vital signs were stable. Laboratory workup revealed no leukocytosis, stable hemoglobin and hematocrit. Urinalysis +4 glucose, +1 ketones, no evidence of urinary tract infection. Potassium 5.3. BUN 29, creatinine 1.4. Glucose 479. Anion gap 9. CO2 28. Stable LFT. CT of the head revealed no evidence of acute intracranial bleeding or mass- effect. CT of the cervical spine demonstrated no acute bony trauma. Minimal degenerative changes noted. Patient admitted with altered mental status and hyperglycemia CONSULTANTS: family service counselor Dr. Mccray director of real estate Dr Issa pulmonary Dr. Fuentes train operations manager Dr. Norman endocrinology [facility] COURSE: Patient admitted to medical surgical floor. Patient started on IV fluids. Endocrinology consult was requested. Hemoglobin A1c- 11.5, clearly not at goal. Dose of long-acting insulin was increased, Starlix and Januvia were continued. Sliding scale of insulin was provided in addition as needed. Diabetic diet and diabetic teaching provided. Patient was counseled on compliance with medication regimen. Lipid panel revealed elevated triglycerides of 199. Patient was educated on low-fat low-cholesterol diet. Tile Setter closely followed. Per nephrology, etiology of acute renal failure was acute tubular necrosis due to unstable hemodynamics. Urine studies were done. Renal parameters and electrolytes were closely monitored, and electrolytes corrected as needed. Hydration was continued. Nephrotoxic were avoided. Prior to discharge creatinine from 1.4 down to 1.2 and potassium down to 4.8. X-ray of the left knee revealed degenerative changes, but no acute bony trauma. X-ray of the left elbow revealed no acute fracture or dislocation. Fall precautions were maintained. Patient was able to ambulate safely. It Architect followed. Blood pressure was managed with calcium channel malorie. Per family service counselor, patient will benefit from echocardiogram to assess left ventricular systolic and diastolic function. Mental status was closely monitored. CT of the head, as mentioned above, was negative. Patient has underlying psychiatric history, including schizophrenia and bipolar disorder. Psychiatric medication regimen was continued. Seizure precautions were maintained. No evidence of seizure activity while in the hospital. Mental status improved to baseline. Altered mental status believed to be possibly due to exacerbation of chronic psychiatric disorder with superimposed initial hypoglycemia. Patient will have outpatient psychiatric evaluation at the assisted living. Clinical Nurse Specialist seen and evaluated patient. Padding and offloading were continued. Patient expressed desire to continue with her own director of real estate as outpatient for surgery. Patient was recommended not to have elective surgery , given uncontrolled diabetes mellitus and continue with conservative management. Patient clinically stabilized and was ready for discharge back to assisted living. FINAL DIAGNOSES Acute renal failure with etiology of acute tubular necrosis due to unstable hemodynamic-improving Diabetes mellitus out of control Hypertension Hammertoe right second toe Bunions bilateral feet Altered mental status , probably due to exacerbation of underlying psychiatric condition with superimposed hyperglycemia DISCHARGE MEDICATIONS: See Medication Reconciliation list. DISCHARGE INSTRUCTIONS: Patient was discharged to assisted living. Follow up with the primary care provider. Patient was recommended to have outpatient echocardiogram. I have been assigned to dictate discharge summary for this account. I was not involved in the patient's management. Stephy Herrera NP Jan 10, 2019 09:15
== END 2019-01-07 22:20 | disposition home or self-care (01) | DRG 420 ==
LOC: EDBD 14:20 → EMR 14:46 → 4E 18:00 → EDBEDREQ 19:12 → 4E 21:47
DX: E11.65 Type 2 diabetes mellitus with hyperglycemia (principal); N17.0 Acute kidney failure with tubular necrosis; R56.9 Unspecified convulsions; F20.9 Schizophrenia, unspecified; I10 Essential (primary) hypertension; M20.41 Other hammer toe(s) (acquired), right foot; M21.612 Bunion of left foot; M21.611 Bunion of right foot; Z88.1 Allergy status to other antibiotic agents; Z88.8 Allergy status to other drugs, medicaments and biological substances; Z91.81 History of falling; F31.9 Bipolar disorder, unspecified
CPT/HCPCS: 36415; 70450; 72125; 80048; 80053; 80061; 81003; 82043; 82044; 82570; 82962; 83036; 83605; 84300; 85025; 87040; 87081; 89050; 96361; 96372; 99285; J1815; S5561